=== PATIENT | female | born 1950 | race Caucasian/White ===

== ENCOUNTER → 2016-11-17 | Outpatient (CLI) | payer OTHER ==
--- NOTE | 2016-11-17 17:20 | REP ---
PA and lateral chest: Comparisons 09/23/2012. The lung proctor are clear. The cardiac size is normal The janell, mediastinum, and bony thorax are unremarkable. Impression: Negative PA and lateral chest. There is no interval change. Signed by Stas Nicholson MD 11/17/2016 05:12 P
== END ==
LOC: M WUC 16:56
PROVIDERS: ATTEND Physician Assistant
DX: J20.9 Acute bronchitis, unspecified (principal)

== ENCOUNTER → 2016-11-27 | Outpatient (REF) | payer OTHER ==
[2016-11-27 19:11] LABS: BASO % 0.3 % (0.0-1.0); EOS # 0.3 K/mm3 (0.0-0.50); LARGE UNSTAINED CELL # 0.1 K/mm3 (0.0-0.4); LARGE UNSTAINED CELL % 1.3 % (0.0-4.0); LYMPH # 1.5 K/mm3 (1.5-4.5); LYMPH % 30.7 % (24.0-44.0); MEAN CORPUSCULAR HEMOGLOBIN 32.6 pg (27.0-33.0); MEAN CORPUSCULAR HGB CONC 33.7 g/dl (32.0-36.5); MEAN CORPUSCULAR VOLUME 96.7 fl (80.0-96.0); MONO # 0.2 K/mm3 (0.0-0.8); NEUTROPHILS # 2.6 K/mm3 (1.8-7.7); NEUTROPHILS % 56.7 % (36.0-66.0); PLATELET COUNT, AUTOMATED 175 k/mm3 (150-450); RED CELL DISTRIBUTION WIDTH 12.9 % (11.5-14.5); WHITE BLOOD COUNT 4.6 K/mm3 (4.0-10.0)
[2016-11-27 19:34] LABS: ALBUMIN 3.8 GM/DL (3.2-5.2); ALKALINE PHOSPHATASE 79 U/L (45-117); ALT/SGPT 32 U/L (12-78); ANION GAP 8 MEQ/L (8-16); AST/SGOT 22 U/L (15-37); BILIRUBIN,TOTAL 0.6 MG/DL (0.2-1.0); BLOOD UREA NITROGEN 16 MG/DL (7-18); CALCIUM LEVEL 8.4 MG/DL (8.8-10.2); CARBON DIOXIDE LEVEL 28 MEQ/L (21-32); CHLORIDE LEVEL 104 MEQ/L (98-107); CHOLESTEROL LEVEL 265 MG/DL (<200); CREATININE FOR GFR 0.86 MG/DL (0.55-1.02); FERRITIN 93 NG/ML (8-252); GLOMERULAR FILTRATION RATE > 60.0 (>45); GLUCOSE, FASTING 93 MG/DL (80-110); PERCENT SATURATION 46.7 % (13.2-37.4); POTASSIUM SERUM 4.2 MEQ/L (3.5-5.1); SODIUM LEVEL 140 MEQ/L (136-145); TOTAL IRON BINDING CAPACITY 347 UG/DL (250-450); TOTAL PROTEIN 7.6 GM/DL (6.4-8.2); TRIGLYCERIDES LEVEL 167 MG/DL (<150)
[2016-11-27 19:36] LABS: FOLATE > 24.0 NG/ML; VITAMIN B12 LEVEL 1291 PG/ML
== END ==
LOC: M LAB REF 16:31
PROVIDERS: ATTEND Family Medicine
DX: Z00.00 Encounter for general adult medical examination without abnormal findings (principal); M54.9 Dorsalgia, unspecified; K57.90 Diverticulosis of intestine, part unspecified, without perforation or abscess without bleeding; Z98.84 Bariatric surgery status; E78.5 Hyperlipidemia, unspecified; J45.50 Severe persistent asthma, uncomplicated

== ENCOUNTER 2017-01-30 13:21 | Emergency (ER) | payer BC, OTHER ==
[~2017-01-30] VITALS: Ht 167.6 cm; Wt 97.3 kg
[2017-01-30] MEDS ORDERED: BREO1INH3 INH (13:39)
[2017-01-30] MEDS ORDERED: ALBU17IN2 INH (13:39)
[2017-01-30] MEDS ORDERED: AMLO10TA2 PO (13:39)
--- NOTE | 2017-01-30 14:55 | ECGEPIP ---
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
[2017-01-30 15:18] LABS: BASO % 0.2 % (0.0-1.0); EOS # 0.1 K/mm3 (0.0-0.50); EOS % 1.5 % (0.0-3.0); LARGE UNSTAINED CELL # 0.1 K/mm3 (0.0-0.4); LARGE UNSTAINED CELL % 1.5 % (0.0-4.0); LYMPH % 17.7 % (24.0-44.0); MEAN CORPUSCULAR HEMOGLOBIN 32.9 pg (27.0-33.0); MEAN CORPUSCULAR HGB CONC 34.6 g/dl (32.0-36.5); MEAN CORPUSCULAR VOLUME 95.2 fl (80.0-96.0); MONO # 0.3 K/mm3 (0.0-0.8); MONO % 4.8 % (0.0-5.0); NEUTROPHILS # 3.9 K/mm3 (1.8-7.7); NEUTROPHILS % 74.3 % (36.0-66.0); PLATELET COUNT, AUTOMATED 171 k/mm3 (150-450); RED CELL DISTRIBUTION WIDTH 12.8 % (11.5-14.5); WHITE BLOOD COUNT 5.2 K/mm3 (4.0-10.0)
--- NOTE | 2017-01-30 15:34 | REP ---
Clinical: Chest pain . Comparison: 11/17/2016 . Findings: The mediastinum and cardiac silhouette are stable and within normal limits for portable technique. The lung proctor are clear without acute consolidation, effusion, or pneumothorax. Skeletal structures are intact. Impression: No acute cardiopulmonary process appreciated. Signed by Paul Goff MD 01/30/2017 03:26 P
[2017-01-30 15:36] LABS: ALBUMIN 3.5 GM/DL (3.2-5.2); ALBUMIN/GLOBULIN RATIO 0.83 (1.00-1.93); ALKALINE PHOSPHATASE 81 U/L (45-117); ALT/SGPT 25 U/L (12-78); ANION GAP 8 MEQ/L (8-16); AST/SGOT 19 U/L (15-37); BILIRUBIN,DIRECT 0.1 MG/DL (0.0-0.2); BILIRUBIN,TOTAL 0.5 MG/DL (0.2-1.0); BLOOD UREA NITROGEN 13 MG/DL (7-18); CALCIUM LEVEL 8.9 MG/DL (8.8-10.2); CARBON DIOXIDE LEVEL 26 MEQ/L (21-32); CHLORIDE LEVEL 106 MEQ/L (98-107); CREATININE FOR GFR 0.75 MG/DL (0.55-1.02); GLOMERULAR FILTRATION RATE > 60.0 (>45); GLUCOSE, FASTING 103 MG/DL (80-110); POTASSIUM SERUM 3.7 MEQ/L (3.5-5.1); SODIUM LEVEL 140 MEQ/L (136-145); TOTAL PROTEIN 7.7 GM/DL (6.4-8.2)
[2017-01-30] MEDS ORDERED: VALS1TAB47 PO (15:57)
[2017-01-30] MEDS ORDERED: CHLO125TA PO (15:57)
[2017-01-30] MEDS ORDERED: CHLORTHALIDONE 12.5MG PER 1/2 TABLET PO ONE (16:00)
[2017-01-30] MEDS ORDERED: VALSARTAN 80 MG TAB (DIOVAN) PO ONE (16:00)
[2017-01-30 16:23] VITALS: BP 182/86
[2017-01-30 17:07] VITALS: BP 184/88
== END 2017-01-30 17:17 | disposition home or self-care (01) ==
LOC: M ED 13:21
DX: I10 Essential (primary) hypertension (principal); J45.909 Unspecified asthma, uncomplicated

== ENCOUNTER → 2020-03-19 | Outpatient (CLI) | payer BC, OTHER ==
[~2020-03-19] MED LIST: ALBU17IN2 INH; AMLO1TAB25 PO; BREO1INH3 INH; CHLO125TA PO; VALS1TAB67 PO
--- NOTE | 2020-04-23 11:03 | REP ---
LEFT KNEE 5-VIEWS Delay in reporting results from hospital computer system malfunction from malware/ ransomware. COMPARISON: None. REASON FOR EXAM: Knee pain. FINDINGS: Mineralization is normal. There is joint space narrowing and osteophytic growth in the medial compartment compatible with osteoarthritis. There are small osteophytes at the patella compatible with patellofemoral osteoarthritis. The lateral compartment is unremarkable. There is no joint effusion. There are no calcifications. 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 MTDD
== END ==
LOC: M WUC 10:31
PROVIDERS: ATTEND Nurse Practitioner Family
DX: M17.12 Unilateral primary osteoarthritis, left knee (principal)

== ENCOUNTER 2024-02-19 13:55 | Emergency (ER) | payer MEDICARE, BC, OTHER ==
[~2024-02-19] VITALS: Ht 167.6 cm; Wt 88.6 kg
[2024-02-19 15:00] LABS: HEMATOCRIT 38.6 % (36.0-47.0); HEMOGLOBIN 13.1 g/dl (12.0-15.5); MEAN CORPUSCULAR HEMOGLOBIN 31.3 pg (27.0-33.0); MEAN CORPUSCULAR HGB CONC 33.9 g/dl (32.0-36.5); MEAN CORPUSCULAR VOLUME 92.3 fl (80.0-96.0); PLATELET COUNT, AUTOMATED 238 10^3/uL (150-450); RED BLOOD COUNT 4.18 10^6/uL (4.00-5.40); WHITE BLOOD COUNT 6.7 10^3/uL (4.0-10.0)
[2024-02-19 15:12] LABS: ALBUMIN 3.2 G/DL (3.2-5.2); ALKALINE PHOSPHATASE 178 U/L (46-116); ALT/SGPT 107 U/L (7.0-40); AST/SGOT 53 U/L (<34); BILIRUBIN,DIRECT 0.4 MG/DL (<0.4); BILIRUBIN,TOTAL 0.9 MG/DL (0.3-1.2); BLOOD UREA NITROGEN 13 MG/DL (9-23); CALCIUM LEVEL 8.3 MG/DL (8.3-10.6); CARBON DIOXIDE LEVEL 22 MMOL/L (20-31); CHLORIDE LEVEL 103 MMOL/L (98-107); CREATININE FOR GFR 0.76 MG/DL (0.55-1.30); GLOMERULAR FILTRATION RATE > 60.0 (>39); GLUCOSE, FASTING 117 MG/DL (74-106); POTASSIUM SERUM 3.8 MMOL/L (3.5-5.1); SODIUM LEVEL 135 MMOL/L (136-145); TOTAL PROTEIN 6.6 G/DL (5.7-8.2)
[2024-02-19 15:23] LABS: ATYPICAL LYMPH 5 % (0-5); LYMPHOCYTES 22 % (16-44); MONOCYTES 2 % (0-5); NEUTROPHILS 70 % (28-66); PLATELET ESTIMATE NORMAL (NORMAL)
[2024-02-19 16:45] VITALS: O2SAT 94
[2024-02-19 17:00] VITALS: BP 135/79
[2024-02-19 17:19] VITALS: TEMP 97.9
[2024-02-19 17:22] LABS: MONO REFLEX EBV COMP NEGATIVE (NEGATIVE)
== END 2024-02-19 17:21 | disposition home or self-care (01) ==
LOC: EDBD 13:55 → M ED 13:55
DX: B34.9 Viral infection, unspecified (principal); Z88.8 Allergy status to other drugs, medicaments and biological substances; Z88.0 Allergy status to penicillin

== ENCOUNTER → 2024-12-10 | Outpatient (CLI) | payer MEDICARE, BC | LOC: M PLAIMG 10:44 | PROVIDERS: ATTEND Registered Nurse | DX: I35.1 Nonrheumatic aortic (valve) insufficiency (principal) ==